=== PATIENT | female | born 1940 | race Caucasian/White ===

== ENCOUNTER 2017-08-17 08:40 | Outpatient (CLI) | payer MEDICARE, BC ==
[~2017-08-17 08:40] MED LIST: ADV50250 IH; ALBU6.7H3 IH; ASPI-529 PO; AZEL137S4 BOTHNARES; CHOL400C8 PO; CYAN1SPR2 NAS; FLUT16SP26 BOTHNARES; FURO-149 PO; LEVO50TA78 PO; LOSA25TA96 PO; MAGN400T6 PO; MOME13HF3 IH; MONT10TA24 PO; MULT1TAB PO; NAPR500T4 PO; POTA20LI PO; SIMV40TA4 PO
== END 2017-08-17 23:59 | disposition home or self-care (01) ==
LOC: VAS 08:40
PROVIDERS: ATTEND Orthopaedic Surgery
DX: G62.9 Polyneuropathy, unspecified (principal)
CPT/HCPCS: 93922; 93925